=== PATIENT | female | born 1940 | race Caucasian/White ===

== ENCOUNTER 2016-09-03 06:31 | Day surgery (SDC) | payer MEDICARE, BC ==
[~2016-09-03 06:31] MED LIST: Buffered Lidocaine 1% SYR 3ML* 3 ML/SYR SYRINGE INTRADERM ONE; Dexamethasone IV* 4 MG/ML 1 ML (4 MG) IV SLOW PU ONE; Dexamethasone IV* 4 MG/ML 1 ML (4 MG) ONE; Famotidine IV* 10 MG/ML 2 ML (20 mg) IV ONE; Famotidine IV* 10 MG/ML 2 ML (20 mg) ONE
[2016-09-03] MEDS ORDERED: BSS OPTH.SOL* BTL ONE (07:16)
[2016-09-03] MEDS ORDERED: Tetracaine 0.5% OPTH.SOL 15ML* BTL ONE (07:16)
[2016-09-03] MEDS ORDERED: Phenylephrine 2.5% OPTH.SOL* 2 ML BTL ONE ×2 (07:18→11:22)
[2016-09-03] MEDS ORDERED: Neomycin/Polymy/Dex OPHTH.OIN* 3.5 GM ONE ×2 (07:18→11:22)
[2016-09-03] MEDS ORDERED: Propofol* 10 MG/ML 20 ML BTL IV PUSH ONE (07:25)
[2016-09-03] MEDS ORDERED: Ondansetron INJ* 2 MG/ML VIAL ONE (07:25)
[2016-09-03] MEDS ORDERED: Ketorolac INJ* 30 MG/ML 1 ML VIAL ONE (07:25)
[2016-09-03] MEDS ORDERED: Lidocaine 2% PF * 5 ML VIAL ONE (07:25)
[2016-09-03] MEDS ORDERED: Tetracaine 0.5% OPTH.SOL 4 ML* 1 DROP BTL ONE ×2 (07:33→11:22)
[2016-09-03] MEDS ORDERED: fentaNYL* 50 MCG/ML 2 ML VIAL (100 MCG VIAL) IV PRN (08:07)
[2016-09-03] MEDS ORDERED: DiMENhydriNATE IV* 50 MG/ML VIAL IV PUSH PRN (08:07)
[2016-09-03 08:58] VITALS: BP 143/58
[2016-09-03] MEDS ORDERED: Flurbiprofen 0.03% OPTH.SOL* 2.5 ML BTL ONE (11:22)
[2016-09-03] MEDS ORDERED: Tropicamide 1% OPTH.SOL* BTL ONE (11:22)
[2016-09-03] MEDS ORDERED: Lidocaine 1% MPF* 2 ML VIAL ONE (11:22)
[2016-09-03] MEDS ORDERED: Cyclopentolate 1% OPTH.SOL* 2 ML BTL ONE (11:22)
--- NOTE | 2016-09-03 11:32 | OP ---
OPERATIVE REPORT: DATE OF OPERATION: 09/03/16 DATE OF : 44 SURGEON: João Fischer MD TROMB[employer]IDE ASSEMBLER: None. ANESTHESIA: General. 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 OPERATIVE PROCEDURE: Recess each lateral rectus 7.5 mm. COMPLICATIONS: None. ESTIMATED BLOOD LOSS: Minimal. OPERATIVE FINDINGS: The patient was brought to the operative room and received general anesthesia. A drop of tetracaine was placed in each eye followed by a drop of phenylephrine. The patient was p repped and draped in the usual sterile fashion for ophthalmic surgery and attention was directed to the left eye, where a speculum was placed. Forced duction was performed and found to be normal. Th e eye was grasped at the inferotemporal conjunctival nevus limbus and brought to superomedial gaze. An inferotemporal fornix incision was created with a Pablo scissors and Tenon's capsule was viol ated. Lateral rectus muscle was isolated in a Justice muscle hook and the check ligament was opened . The muscle was cleaned with sharp and blunt dissection. A double armed 6-0 Vicryl suture was rol led into the muscle nearest insertion and locked at either end. The muscle was disinserted from the globe and inspected. The original insertion site received general cauterization for hemostasis. A kavin was made 7.5 mm posterior to the original insertion site using a caliper. The muscle was rece ssed to this point and tied securely. Sutures were trimmed. The muscle was inspected. It was in g ood position without bleeding. The locking forceps were removed. The conjunctiva was then closed wi th interrupted 6-0 gut sutures. The eye was irrigated and the speculum was removed. The speculum w as then placed in the contralateral, right, eye where the exact same procedure was performed. At th e end of the case, the eyes appeared straight and there was no active bleeding. Topical tetracaine followed by Maxitrol ointment was placed in each eye. The patient was awaken uneventfully and sent to recovery room in stable condition with postoperative instructions and followup appointment given. [id number]/[facility] #: [id number]
== END 2016-09-03 09:22 | disposition home or self-care (01) ==
LOC: OREAST 06:31
PROVIDERS: ATTEND Ophthalmology
DX: H50.10 Unspecified exotropia (principal); I10 Essential (primary) hypertension; E03.9 Hypothyroidism, unspecified
CPT/HCPCS: A9270-GY; J1100; J1885; J2405; J2704